=== PATIENT | male | born 1975 | race African-American/Black ===

== ENCOUNTER 2017-04-11 09:20 | Inpatient (IN) | payer MEDICAID ==
[~2017-04-11] VITALS: Ht 182.9 cm; Wt 105.2 kg
[2017-04-11 11:00] LABS: PLATELET COUNT 278 x10^3mcL (130-400); RED CELL DISTRIBUTION WIDTH 13.6 % (11.5-14.5)
[2017-04-11 11:12] LABS: CALCIUM 8.8 mg/dL (8.5-10.1); CARBON DIOXIDE 26.7 mmol/L (21-32); CHLORIDE SERUM 105 mmol/L (98-107); GFR1 > 60 mL/min; GLUCOSE SERUM 131 mg/dL (74-106); POTASSIUM SERUM 3.9 mmol/L (3.5-5.1); SODIUM SERUM 143 mmol/L (136-145)
[2017-04-11 11:16] LABS: ALBUMIN 4.1 g/dL (3.4-5.0); ALKALINE PHOSPHATASE 92 U/L (46-116); ALT/SGPT 50 U/L (16-63); AST/SGOT 25 U/L (15-37); BILIRUBIN TOTAL 0.55 mg/dL (0.20-1.00); LIPASE 738 IU/L (73-393); TOTAL PROTEIN, SERUM 8.1 g/dL (6.4-8.2)
[2017-04-11 11:17] LABS: AMYLASE 116 U/L (25-115)
[2017-04-11] MEDS ORDERED: ASPIR LOW81 MG PO (13:23)
[2017-04-11] MEDS ORDERED: AMLODIPINE BESY10 M2 PO (13:24)
[2017-04-11] MEDS ORDERED: BENAZEPRIL HYDR20 M1 PO (13:24)
[2017-04-11 13:25] LABS: BAND NEUTROPHIL 2 % (0-10); MONOCYTE 4 % (0-7); SEGMENTED NEUTROPHILS 89 % (37-75); rbc morphology (normal/abnorm) NORMAL (NORMAL)
[2017-04-11 13:26] LABS: PLATELET MORPHOLOGY PLATELETS NORMAL
[2017-04-11 13:42] LABS: MAGNESIUM 1.9 mg/dL (1.8-2.4); PHOSPHOROUS 2.6 mg/dL (2.5-4.9)
[2017-04-11 14:15] VITALS: BP 162/94
[2017-04-11 14:17] VITALS: Ht 182.9 cm; Wt 105.2 kg
[2017-04-11 16:52] LABS: CHOLESTEROL/HDL RATIO 4.4
[2017-04-11 16:55] LABS: microscopic required? YES; urine erythrocyte TRACE (NEGATIVE)
[2017-04-11 17:03] LABS: AMPHETAMINE QUAL UR NONE DETECTED (NEG <=1000)
[2017-04-11 17:46] VITALS: BP 162/94
[2017-04-11 18:45] VITALS: BP 140/99
[2017-04-11 20:50] VITALS: BP 147/84
[2017-04-12 06:07] VITALS: BP 135/74
[2017-04-12 06:08] LABS: CALCIUM 8.2 mg/dL (8.5-10.1); CARBON DIOXIDE 25.1 mmol/L (21-32); CHLORIDE SERUM 107 mmol/L (98-107); CREATININE SERUM 0.9 mg/dL (0.7-1.3); GFR1 > 60 mL/min; GLUCOSE SERUM 110 mg/dL (74-106); PHOSPHOROUS 2.8 mg/dL (2.5-4.9); POTASSIUM SERUM 3.9 mmol/L (3.5-5.1); SODIUM SERUM 142 mmol/L (136-145)
[2017-04-12 07:14] LABS: PLATELET COUNT 268 x10^3mcL (130-400)
[2017-04-12 07:27] LABS: BASOPHIL % 0 % (0-2)
[2017-04-12 10:29] VITALS: BP 173/82
[2017-04-12 14:08] VITALS: BP 152/81
[2017-04-12 18:43] VITALS: BP 123/63
[2017-04-12 21:50] VITALS: BP 128/77
[2017-04-13 06:12] VITALS: BP 146/85
[2017-04-13 07:07] LABS: AMYLASE 37 U/L (25-115); CALCIUM 8.7 mg/dL (8.5-10.1); CARBON DIOXIDE 22.8 mmol/L (21-32); CHLORIDE SERUM 105 mmol/L (98-107); CREATININE SERUM 0.9 mg/dL (0.7-1.3); GFR1 > 60 mL/min; GLUCOSE SERUM 97 mg/dL (74-106); LIPASE 191 IU/L (73-393); MAGNESIUM 2.1 mg/dL (1.8-2.4); PHOSPHOROUS 1.6 mg/dL (2.5-4.9); POTASSIUM SERUM 3.4 mmol/L (3.5-5.1); SODIUM SERUM 138 mmol/L (136-145)
[2017-04-13 07:26] LABS: PLATELET COUNT 270 x10^3mcL (130-400); RED CELL DISTRIBUTION WIDTH 13.9 % (11.5-14.5)
[2017-04-13 09:58] VITALS: BP 129/69
[2017-04-13 10:14] LABS: BAND NEUTROPHIL 2 % (0-10); BASOPHIL 0 % (0-2); MONOCYTE 6 % (0-7); SEGMENTED NEUTROPHILS 83 % (37-75)
[2017-04-13 10:15] LABS: PLATELET MORPHOLOGY PLATELETS NORMAL
[2017-04-13 13:03] VITALS: BP 159/90
[2017-04-13] MEDS ORDERED: ACETAMINOPHEN-H1 TA1 PO (15:54)
[2017-04-13 17:12] VITALS: BP 148/85
[2017-04-13 21:13] VITALS: BP 131/80
[2017-04-14 05:58] VITALS: BP 140/71
[2017-04-14 06:21] LABS: BASOPHIL % 0.4 % (0-2); PLATELET COUNT 261 x10^3mcL (130-400); RED CELL DISTRIBUTION WIDTH 13.9 % (11.5-14.5)
[2017-04-14 06:33] LABS: CALCIUM 8.4 mg/dL (8.5-10.1); CARBON DIOXIDE 23.4 mmol/L (21-32); CHLORIDE SERUM 107 mmol/L (98-107); CREATININE SERUM 0.9 mg/dL (0.7-1.3); GFR1 > 60 mL/min; GLUCOSE SERUM 96 mg/dL (74-106); MAGNESIUM 2.1 mg/dL (1.8-2.4); PHOSPHOROUS 1.9 mg/dL (2.5-4.9); POTASSIUM SERUM 3.6 mmol/L (3.5-5.1); SODIUM SERUM 142 mmol/L (136-145)
[2017-04-14] MEDS ORDERED: ONDANSETRON4 M3 PO (07:06)
[2017-04-14] MEDS ORDERED: IBUPROFEN400 MG PO (09:14)
[2017-04-14 10:03] VITALS: BP 166/79
[2017-04-14] MEDS ORDERED: NOR10T PO (10:28)
[2017-04-14] MEDS ORDERED: COLACE100 MG PO (10:28)
[2017-04-14 12:38] VITALS: BP 139/89; BP 166/79
[2017-04-14 12:45] VITALS: BP 139/89
== END 2017-04-14 15:49 | disposition home or self-care (01) | DRG 282 ==
LOC: ED 09:20 → DU 12:56
PROVIDERS: Emergency Medicine Emergency Medical Services; Family Medicine; ADMIT Student in an Organized Health Care Education/Training Program
DX: K85.90 Acute pancreatitis without necrosis or infection, unspecified (principal); N17.0 Acute kidney failure with tubular necrosis; R65.10 Systemic inflammatory response syndrome (SIRS) of non-infectious origin without acute organ dysfunction; J98.11 Atelectasis; R73.03 Prediabetes; I10 Essential (primary) hypertension; E66.9 Obesity, unspecified; E78.5 Hyperlipidemia, unspecified; Z68.31 Body mass index [BMI] 31.0-31.9, adult; Z79.82 Long term (current) use of aspirin; Z87.891 Personal history of nicotine dependence
CPT/HCPCS: J0295; J1170; J1885; J1956; J2270; J2405; J3480; J3490; J7030; Q0092; Q9967